=== PATIENT | female | born 1990 | race Two or more races ===

== ENCOUNTER 2023-01-28 20:27 | Emergency (ER) | payer OTHER ==
[2023-01-28] MEDS ORDERED: ACETAMINOPHEN 325 MG TABLET PO STA (20:45)
[2023-01-28] MEDS ORDERED: KETOROLAC 15 MG/ML VIAL IVP STA (20:45)
[2023-01-28] MEDS ORDERED: SODIUM CHLORIDE 0.9% 2,500 ML IV STA (20:45)
--- NOTE | 2023-01-28 20:49 | ED Physician Documentation ---
History of Present Illness - Stated complaint Stated Complaint: NUMB - History obtained from History obtained from: Patient - Additonal information Additional information: 32yF, previously healthy, p/w sore throat, clear rhinorrhea, and body aches/lower back pain X 1 day. denies sick contacts. denies nausea, abd pain, soa, cp, diarrhea, urinary sx. PD PAST MEDICAL HISTORY - Allergies Allergies/Adverse Reactions: Allergies Allergy/AdvReac Type Severity Reaction Status Date / Time No Known Drug Allergies Allergy Verified 01/28/23 20:59 PD ED PE NORMAL - Vitals Vital signs reviewed: Yes - General General: Alert and oriented X 3, No acute distress, Well developed/nourished - HEENT HEENT: Atraumatic, PERRL, EOMI, Moist mucous membranes, Other (BL tonsillar enlargement) - Neck Neck: Supple, no meningeal sign - Cardiac Cardiac: RRR - Respiratory Respiratory: No respiratory distress, Clear bilaterally - Abdomen Abdomen: Non tender, Non distended, No organomegaly - Back Back: No CVA TTP, No spinal TTP - Derm Derm: Normal color, Warm and dry - Extremities Extremities: Other (BL UE is held in flexion. hands are able to be straightened on my exam) - Neuro Neuro: Alert and oriented X 3, film writer 2-12 intact, No motor deficit, No sensory deficit, Normal speech Eye Opening: Spontaneous Motor: Obeys Commands Verbal: Oriented GCS Score: 15 Results - Vitals Vitals: Vital Signs - 24 hr 01/28/23 01/28/23 01/28/23 20:52 21:47 22:35 Temperature 38.8 C H 37 C Heart Rate 88 88 85 Respiratory 17 18 20 Rate Blood Pressure 145/107 H 114/66 110/69 O2 Saturation 100 100 100 If not protocol 2 : Oxygen Flow, liters/minute Oxygen O2 Source Room air - Labs Labs: Laboratory Tests 01/28/23 01/28/23 01/28/23 20:40 20:40 20:40 WBC 7.4 RBC 4.65 Hgb 12.8 Hct 38.6 MCV 83.0 MCH 27.5 MCHC 33.2 RDW 12.8 Plt Count 280 MPV 10.8 Neut # (Auto) 5.1 Lymph # (Auto) 0.9 L [place] # (Auto) 1.3 H Eos # (Auto) 0.0 Baso # (Auto) 0.1 Absolute Nucleated RBC 0.00 Nucleated RBC % 0.0 Sodium 132 L Potassium 3.5 Chloride 99 L Carbon Dioxide 23 Anion Gap 10.0 BUN 6 Creatinine 0.7 Estimated GFR (MDRD) 98 Glucose 122 H Lactic Acid 2.6 H Calcium 9.5 Magnesium 1.3 L Total Bilirubin 0.5 AST 14 ALT 9 L Alkaline Phosphatase 58 Total Protein 7.7 Albumin 4.4 Globulin 3.3 Albumin/Globulin Ratio 1.3 Urine HCG, Qual Nasal Adenovirus (PCR) Nasal B. parapertussis DNA (PCR) Nasal Coronavir 229E PCR Nasal Coronavir HKU1 PCR Nasal Coronavir NL63 PCR Nasal Coronavir OC43 PCR Nasal Enterovir/Rhinovir PCR Nasal Influenza B PCR Nasal Influenza A PCR Nasal Parainfluen 1 PCR Nasal Parainfluen 2 PCR Nasal Parainfluen 3 PCR Nasal Parainfluen 4 PCR Nasal RSV (PCR) Nasal B.pertussis DNA PCR Nasal C.pneumoniae (PCR) [place] Human Metapneumo PCR Nasal M.pneumoniae (PCR) Nasal SARS-CoV-2 (PCR) 01/28/23 01/28/23 01/28/23 20:42 21:45 22:30 WBC RBC Hgb Hct MCV MCH MCHC RDW Plt Count MPV Neut # (Auto) Lymph # (Auto) [place] # (Auto) Eos # (Auto) Baso # (Auto) Absolute Nucleated RBC Nucleated RBC % Sodium Potassium Chloride Carbon Dioxide Anion Gap BUN Creatinine Estimated GFR (MDRD) Glucose Lactic Acid 0.8 Calcium Magnesium Total Bilirubin AST ALT Alkaline Phosphatase Total Protein Albumin Globulin Albumin/Globulin Ratio Urine HCG, Qual NEGATIVE Nasal Adenovirus (PCR) NOT DETECTED Nasal B. parapertussis DNA (PCR) NOT DETECTED Nasal Coronavir 229E PCR NOT DETECTED Nasal Coronavir HKU1 PCR NOT DETECTED Nasal Coronavir NL63 PCR NOT DETECTED Nasal Coronavir OC43 PCR NOT DETECTED Nasal Enterovir/Rhinovir PCR NOT DETECTED Nasal Influenza B PCR NOT DETECTED Nasal Influenza A PCR NOT DETECTED Nasal Parainfluen 1 PCR NOT DETECTED Nasal Parainfluen 2 PCR NOT DETECTED Nasal Parainfluen 3 PCR NOT DETECTED Nasal Parainfluen 4 PCR NOT DETECTED Nasal RSV (PCR) NOT DETECTED Nasal B.pertussis DNA PCR NOT DETECTED Nasal C.pneumoniae (PCR) NOT DETECTED [place] Human Metapneumo PCR NOT DETECTED Nasal M.pneumoniae (PCR) NOT DETECTED Nasal SARS-CoV-2 (PCR) DETECTED A PD Medical Decision Making - ED course ED course: 32yF p/w viral URI sx X 1 day. sepsis protocol initiated at triage given fever and apparent extremity contracture. On my exam, patient is able to straighten her hands with some discomfort and appears to have some oropharyngeal erythema and tonsillar enlargement. RVP sent. plan to f/u cbc, abdominal panel, lactate, magnesium, cxr, and provide patient with IVF, tylenol, and IV toradol for body aches. Patient feeling much better, body aches and hand numbness/flexion resolved. covid +. she also had elevated lactic acid, repeated after fluids was normal. magnesium 1.3, repleted. plan to go home to rest, f/u with pcp. return precautions given. Departure - Departure Disposition: 01 Home, Self Care Clinical Impression: URI (upper respiratory infection), COVID, Hypomagnesemia Condition: Stable Instructions: COVID-19 [facility] Comments: You are seen in the emergency department for COVID-19 infection. Please stay at home, wear a mask around other members of household, wash your hands, get lots of rest, hydrate, use a cool-mist humidifier by the bedside at nighttime. You also had slightly low magnesium which we provided to you as a supplement through your IV. Return to the emergency department if you have shortness of breath, any new or worsening symptoms or other concerns. Follow-up with your primary care provider. Forms: PCP List
[2023-01-28 20:54] LABS: BASOPHILS # (AUTO) 0.1 10^3/uL (0.0-0.1); BASOPHILS % (AUTO) 0.7 %; EOSINOPHILS % (AUTO) 0.1 %; HCT - HEMATOCRIT 38.6 % (37.0-47.0); HGB - HEMOGLOBIN 12.8 g/dL (12.0-16.0); LYMPHOCYTES # (AUTO) 0.9 10^3/uL (1.5-3.5); LYMPHOCYTES % (AUTO) 12.5 %; MEAN CORPUSCULAR HEMOGLOBIN 27.5 pg (27.0-31.0); MEAN CORPUSCULAR HGB CONC 33.2 g/dL (32.0-36.0); MEAN PLATELET VOLUME 10.8 fL (7.9-10.8); MONOCYTES # (AUTO) 1.3 10^3/uL (0.0-1.0); MONOCYTES % (AUTO) 17.2 %; NEUTROPHILS # (AUTO) 5.1 10^3/uL (1.5-6.6); NEUTROPHILS % (AUTO) 69.2 %; PLT - PLATELET COUNT 280 10^3/uL (130-450); RED BLOOD COUNT 4.65 10^6/uL (4.20-5.40); RED CELL DISTRIBUTION WIDTH 12.8 % (12.0-15.0); WHITE BLOOD COUNT 7.4 x10^3/uL (4.8-10.8)
[2023-01-28 21:02] LABS: ALBUMIN 4.4 g/dL (3.2-5.5); ALBUMIN/GLOBULIN RATIO 1.3 (1.0-2.2); BILIRUBIN,TOTAL 0.5 mg/dL (0.2-1.0); CALCIUM 9.5 mg/dL (8.5-10.3); CREATININE 0.7 mg/dL (0.6-1.3); LACTIC ACID, VENOUS 2.6 mmol/L (0.5-2.2); MAGNESIUM 1.3 mg/dL (1.7-2.3); POTASSIUM 3.5 mmol/L (3.5-4.5); TOTAL PROTEIN 7.7 g/dL (6.4-8.9)
[2023-01-28] MEDS ORDERED: ACETAMINOPHEN 1,000 MG/100 ML 1,000 MG/100 ML BAG IV ONE (21:09)
--- NOTE | 2023-01-28 21:34 | XRAY Report ---
PROCEDURE: Chest 1 View X-Ray INDICATIONS: sore throat, rhinorrhea, fever, body aches TECHNIQUE: One view of the chest was acquired. COMPARISON: None. FINDINGS: Surgical changes and devices: None. Lungs and pleura: No pleural effusions or pneumothorax. Lungs are clear. Mediastinum: Mediastinal contours appear normal. Heart size is normal. Bones and chest wall: No suspicious bony lesions. Overlying soft tissues appear unremarkable. IMPRESSION: No acute cardiopulmonary process. Reviewed by: Nel Levi MD on 01/28/2023 9:33 PM PDT Approved by: Nel Levi MD on 01/28/2023 9:33 PM PDT Station ID: [id number]
[2023-01-28 22:00] LABS: HCG UR QUAL NEGATIVE
[2023-01-28 22:04] LABS: B. PARAPERTUSSIS- RESP PCR PAN NOT DETECTED; B. PERTUSSIS- RESP PCR PANEL NOT DETECTED; C. PNEUMONIAE- RESP PCR PANEL NOT DETECTED; CORONAVIRUS 229E-RESP PCR NOT DETECTED; CORONAVIRUS HKU1-RESP PCR NOT DETECTED; CORONAVIRUS NL63-RESP PCR NOT DETECTED; CORONAVIRUS OC43-RESP PCR NOT DETECTED; HUMAN METAPNEUMOVIRUS NOT DETECTED; INFLUENZA A- RESP PCR PANEL NOT DETECTED; INFLUENZA B - RESP PCR PANEL NOT DETECTED; M. PNEUMONIAE- RESP PCR PANEL NOT DETECTED; PARAINFLUENZA VIRUS 1 NOT DETECTED; PARAINFLUENZA VIRUS 2 NOT DETECTED; PARAINFLUENZA VIRUS 3 NOT DETECTED; PARAINFLUENZA VIRUS 4 NOT DETECTED; RHINOVIRUS/ENTEROVIRUS NOT DETECTED; RSV- RESP PCR PANEL NOT DETECTED
[2023-01-28 22:05] LABS: SARS-CoV-2 -RESP PCR PANEL DETECTED
[2023-01-28] MEDS ORDERED: MAGNESIUM SULFATE 2 GRAM 2 GM/50 ML BAG IV ONE (22:20)
[2023-01-28 23:24] VITALS: BP 106/67; O2SAT 97
== END 2023-01-28 23:47 | disposition home or self-care (01) ==
LOC: ED 20:27
DX: U07.1 COVID-19 (principal); E83.42 Hypomagnesemia
CPT/HCPCS: 36415; 71045; 80053; 81025; 83605; 83735; 85025; 87040; 87633; 96365; 96367; 96375; 99283; 99284; A9270; J0131

== ENCOUNTER 2023-12-16 13:52 | Inpatient (IN) | payer OTHER ==
[2023-12-16 14:59] LABS: BASOPHILS % (AUTO) 0.4 %; EOSINOPHILS # (AUTO) 0.1 10^3/uL (0.0-0.7); EOSINOPHILS % (AUTO) 1.1 %; HCT - HEMATOCRIT 36.5 % (37.0-47.0); HGB - HEMOGLOBIN 11.4 g/dL (12.0-16.0); LYMPHOCYTES # (AUTO) 2.6 10^3/uL (1.5-3.5); LYMPHOCYTES % (AUTO) 26.2 %; MEAN CORPUSCULAR HEMOGLOBIN 23.4 pg (27.0-31.0); MEAN CORPUSCULAR HGB CONC 31.2 g/dL (32.0-36.0); MEAN CORPUSCULAR VOLUME 74.8 fL (81.0-99.0); MONOCYTES % (AUTO) 10.5 %; NEUTROPHILS # (AUTO) 6.1 10^3/uL (1.5-6.6); NEUTROPHILS % (AUTO) 61.7 %; PLT - PLATELET COUNT 389 10^3/uL (130-450); RED BLOOD COUNT 4.88 10^6/uL (4.20-5.40); RED CELL DISTRIBUTION WIDTH 17.1 % (12.0-15.0); WHITE BLOOD COUNT 9.9 x10^3/uL (4.8-10.8)
[2023-12-16 15:12] LABS: LIPASE 19 U/L (11-82); MAGNESIUM 1.9 mg/dL (1.7-2.3)
[2023-12-16 15:22] LABS: ALBUMIN 4.2 g/dL (3.2-5.5); ALBUMIN/GLOBULIN RATIO 1.3 (1.0-2.2); ALKALINE PHOSPHATASE 54 IU/L (42-121); ALT ALANINE AMINOTRANSFERASE 296 IU/L (10-60); AST ASPARTATE AMINOTRANSFERASE 1445 IU/L (10-42); BILIRUBIN,TOTAL 0.7 mg/dL (0.2-1.0); BUN - BLOOD UREA NITROGEN 8 mg/dL (6-20); CALCIUM 9.3 mg/dL (8.5-10.3); CARBON DIOXIDE - CO2 28 mmol/L (21-32); CHLORIDE 103 mmol/L (101-111); CREATININE 0.6 mg/dL (0.6-1.3); GFR - MDRD 116 (>89); GLUCOSE 90 mg/dL (74-104); POTASSIUM 3.9 mmol/L (3.5-4.5); SODIUM 135 mmol/L (135-145); TOTAL PROTEIN 7.5 g/dL (6.4-8.9)
--- NOTE | 2023-12-16 15:56 | ED Physician Documentation ---
PD HPI LOWER EXT INJURY - Stated complaint Stated Complaint: ,BILAT LEG SWELLING - Chief complaint Chief Complaint: Ext Problem - Treatment prior to arrival Treatment prior to arrival: 33 yo female with hx of iron deficiency anemia, and low vitamind D, does take daily iron and D3 supplements presents to ER from clinic for bilateral lower extremity pain, specifically to knees. Clinic was concerned about rhabdo due to recent strenuous workout and very dark concentrated urine. Pt states she had a strenuous workout either Wednesday or Wednesday and focused on legs, she is normally fit but was preparing for a physical readiness test with [employer] so she added more weight than usual. Started experiencing some soreness and mild swelling to bilateral knees the following days still with regular ROM, yesterday severe bilateral leg swelling and pts says she is unable to bend either knees at all. No ankle pain. No recent fevers or chills, no nausea vomiting. Noticed very dark colored urine this morning. 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 - Present Medications Home Medications: Ambulatory Orders Medication Instructions Recorded Confirmed Cholecalciferol (Vitamin D3) 1,250 mcg PO DAILY 12/16/23 12/16/23 [Vitamin D3] Ferrous Sulfate [Feosol] 325 mg PO DAILY 12/16/23 12/16/23 - Allergies Allergies/Adverse Reactions: Allergies Allergy/AdvReac Type Severity Reaction Status Date / Time No Known Drug Allergies Allergy Verified 12/16/23 14:03 - Social History Does the pt smoke?: No Smoking Status: Never smoker Does the pt drink ETOH?: Yes ETOH Use: Wine Does the pt have substance abuse?: No - Immunizations Immunizations are current?: Yes PD ED PE NORMAL - Vitals Vital signs reviewed: Yes - General General: Alert and oriented X 3, No acute distress, Well developed/nourished - Cardiac Cardiac: RRR - Respiratory Respiratory: No respiratory distress, Clear bilaterally - Abdomen Abdomen: Normal bowel sounds, Soft, Non tender - Derm Derm: Normal color, Warm and dry, No rash - Extremities Extremities: Other (BLE: significant swelling from mid thigh to just below knees, Unable to bend knees due to pain and swelling) Results - Vitals Vitals: Vital Signs - 24 hr 12/16/23 12/16/23 13:55 16:22 Temperature 36.8 C Heart Rate 67 62 Respiratory 16 14 Rate Blood Pressure 109/89 H 140/92 H O2 Saturation 100 100 Oxygen O2 Source Room air - Labs Labs: Laboratory Tests 12/16/23 12/16/23 12/16/23 14:55 14:55 15:32 WBC 9.9 RBC 4.88 Hgb 11.4 L Hct 36.5 L MCV 74.8 L MCH 23.4 L MCHC 31.2 L RDW 17.1 H Plt Count 389 MPV 10.0 Neut # (Auto) 6.1 Lymph # (Auto) 2.6 [place] # (Auto) 1.0 Eos # (Auto) 0.1 Baso # (Auto) 0.0 Absolute Nucleated RBC 0.00 Nucleated RBC % 0.0 Sodium 135 Potassium 3.9 Chloride 103 Carbon Dioxide 28 Anion Gap 4.0 L BUN 8 Creatinine 0.6 Estimated GFR (MDRD) 116 Glucose 90 Calcium 9.3 Magnesium 1.9 Total Bilirubin 0.7 AST 1445 H ALT 296 H Alkaline Phosphatase 54 Total Creatine Kinase > 24413 H* Total Protein 7.5 Albumin 4.2 Globulin 3.3 Albumin/Globulin Ratio 1.3 Lipase 19 Urine Color BROWN Urine Clarity HAZY Urine pH 6.0 Ur Specific [place] >=1.030 H Urine Protein >=300 H Urine Glucose (UA) NEGATIVE Urine Ketones NEGATIVE Urine Occult Blood LARGE H Urine Nitrite NEGATIVE Urine Bilirubin SMALL H Urine Urobilinogen 0.2 (NORMAL) Ur Leukocyte Esterase NEGATIVE Urine RBC 6-10 H Urine WBC 4-5 Ur Squamous Epith Cells MOD Squamous H Urine Bacteria Moderate H Urine Mucus Moderate Strands Ur Microscopic Review INDICATED Urine Culture Comments NOT INDICATED PD Medical Decision Making - ED course ED course: 33-year-old female presents emergency department for bilateral lower extremity pain and swelling. Labs are complete for further evaluation as there is a high concern for rhabdomyolysis and CK was found to be greater than 80,000. Urinalysis showed a large amount of occult blood as well as bilirubin and no urobilinogen. CBC shows some very mild anemia, hemoglobin 11.4 no electrolyte abnormalities and kidney function is actually found to be unremarkable. AST alex vated at 1445, ALT 296. I spoke with hospitalist about admitting patient here he agrees that patient needs to be admitted for rhabdomyolysis he just wanted to confirm that nephrology felt like this was safe given how high her CK was. I spoke with nephrology at [facility] who believes that patient is safe to stay at our critical access hospital for aggressive IV fluids with low threshold to transfer out if kidney function changes. Patient will be admitted for aggressive IV fluids and routine lab monitoring. Pain was controlled with IV Dilaudid patient is ambulating but is having a hard time bending her knees she is making urine she has poor voided about 3-4 times that she has been here. Patient is agreeable to stay and Dr. Oneal has graciously agreed to accept the patient. Departure - Departure Disposition: 67 [facility] DC/[place] Clinical Impression: Rhabdomyolysis Discharge Date/Time: 12/16/23 17:39
[2023-12-16 16:01] LABS: BILIRUBIN,URINE SMALL (NEGATIVE); GLUCOSE, URINE (UA) NEGATIVE (NEGATIVE); KETONES,URINE (UA) NEGATIVE (NEGATIVE); LEUKOCYTE ESTERASE, URINE NEGATIVE (NEGATIVE); NITRITE,URINE NEGATIVE (NEGATIVE); OCCULT BLOOD,URINE LARGE (NEGATIVE); PROTEIN,URINE >=300 mg/dL (NEGATIVE); UROBILINOGEN,URINE 0.2 (NORMAL) E.U./dL (NORMAL)
[2023-12-16 16:06] LABS: CLARITY,URINE HAZY (CLEAR)
[2023-12-16 16:10] LABS: BACTERIA,URINE Moderate /HPF (None Seen); MUCUS,URINE Moderate Strands; SQUAMOUS EPITHELIAL CELL,UR MOD Squamous (<= Few)
[2023-12-16] MEDS: SODIUM CHLORIDE 0.9% 1,000 ML IV STA (16:10)
[2023-12-16 16:33] LABS: CK- CREATINE KINASE > 80000 IU/L (30-223)
[2023-12-16] MEDS ORDERED: ONDANSETRON ODT 4 MG TABLET TL PRN (16:43)
[2023-12-16] MEDS: HYDROmorphone 0.5 MG/0.5 ML SYRINGE IVP STA (16:50)
--- NOTE | 2023-12-16 17:55 | HISTORY & PHYSICAL EXAMINATION ---
Chief Complaint - Chief Complaint Chief Complaint: Bilateral leg pain History of Present Illness - History of Present Illness HPI Comment/Other: Patient is a 33-year-old female the past medical history of iron deficiency anemia and vitamin D deficiency who presented to the ED from an outpatient clinic due to bilateral lower extremity pain and concentrated urine with concern for rhabdomyolysis. Patient stated that she had a very strenuous workout earlier in the week focused on her legs in preparation for a physical readiness test with the [employer] and began experiencing soreness as well as mild bilateral knee pain in the following days. Her range of motion was not restricted at this time. She had some dark-colored urine this morning and sought additional medical care. Upon presentation to the ED a CK was obtained which was greater than 80,000. Her renal function was within normal limits and she did not have any electrolyte derangements. She was given 1 L of normal saline and did produce urine. Patient stated that her urine was clearing up slightly after her IV fluids. Case was discussed with nephrology at an outside hospital who stated that given her normal renal function and urine production she could be managed at [facility]. 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 : reports: None HEENT: reports: None Psych: reports: None Musculoskeletal: reports: None Derm: reports: None MRSA Hx?: No - Past Surgical History /PAINT DIPPER: reports: Dilation and currettage Meds/Allgy - Home Medications Home Medications: Ambulatory Orders Medication Instructions Recorded Confirmed Cholecalciferol (Vitamin D3) 1,250 mcg PO DAILY 12/16/23 12/16/23 [Vitamin D3] Ferrous Sulfate [Feosol] 325 mg PO DAILY 12/16/23 12/16/23 - Allergies Allergies/Adverse Reactions: Allergies Allergy/AdvReac Type Severity Reaction Status Date / Time No Known Drug Allergies Allergy Verified 12/16/23 14:03 Review of Systems - Constitutional Constitutional: denies: Fatigue, Fever, Chills, Malaise - Cardiovascular Cariovascular: denies: Irregular heart rate, Palpitations, Chest pain - Respiratory Respiratory: denies: Cough, Sputum production - Gastrointestinal Gastrointestinal: denies: Abdominal pain, Abdominal distention - Musculoskeletal Musculoskeletal: reports: Muscle pain, Muscle aches, Stiffness, Limited range of motion, Muscle weakness - All Other Systems All Other Systems: reports: Reviewed and negative Exam - Vital Signs Vital Signs: Vital Signs x48h Temp Pulse Resp BP Pulse Ox 12/16/23 16:22 62 14 140/92 H 100 12/16/23 13:55 36.8 C 67 16 109/89 H 100 - Physical Exam General Appearance: positive: Alert, Mild distress Respiratory: positive: Chest non-tender, No respiratory distress, Breath sounds nml Cardiovascular: positive: Regular rate & rhythm, No murmur, No gallop Abdomen: positive: Non-tender, No organomegaly, Nml bowel sounds, No distention Skin: positive: Color nml, No rash, Warm, Dry Extremities: positive: Nml appearance, No pedal edema. negative: Full ROM, Calf tenderness, Joint swelling, Lauren's sign/cords Conclusion/Plan - Problem List (1) Rhabdomyolysis Conclusion/Plan: -- Rhabdomyolysis with a CK greater than 80,000. Continue to trend until clearance. -- Will start patient on aggressive IV fluid resuscitation. Will give her a 2 L fluid bolus and start her on 200 mL an hour of IV fluids. Can administer IV Lasix if she becomes fluid overloaded. --Obtain BMP, ionized calcium, uric acid, phosphorus every 6 hours. --Careful monitoring of urine output. --Cardiac monitoring on telemetry. --She will be managed in the intensive care unit. --Will consider transfer pending electrolyte derangements or renal dysfunction. Qualifiers: Rhabdomyolysis type: non-traumatic Qualified Code(s): M62.82 - Rhabdomyolysis - Lab Results Fish Bones: 12/16/23 14:55 12/16/23 14:55
[2023-12-16 18:04] LABS: CALCIUM, IONIZED 1.13 mmol/L (1.15-1.33); VBG PH 7.358 (7.31-7.41)
[2023-12-16 18:08] LABS: INR 1.2 (0.8-1.2); PT - PROTHROMBIN TIME 13.4 secs (9.9-12.6)
[2023-12-16] MEDS: SODIUM CHLORIDE 0.9% 2,218.08 ML IV STA (18:09)
[2023-12-16] MEDS: SODIUM CHLORIDE FLUSH 0.9% 10 ML SYRINGE IVP SCH (18:15)
[2023-12-16 18:19] LABS: PHOSPHORUS 4.1 mg/dL (2.5-5.0); URIC ACID 5.3 mg/dL (2.3-6.6)
[2023-12-16 18:27] LABS: BUN - BLOOD UREA NITROGEN 8 mg/dL (6-20); CALCIUM 8.5 mg/dL (8.5-10.3); CARBON DIOXIDE - CO2 28 mmol/L (21-32); CHLORIDE 105 mmol/L (101-111); CREATININE 0.6 mg/dL (0.6-1.3); GFR - MDRD 116 (>89); GLUCOSE 90 mg/dL (74-104); POTASSIUM 3.8 mmol/L (3.5-4.5); SODIUM 135 mmol/L (135-145)
[2023-12-16 18:39] LABS: CK- CREATINE KINASE > 80000 IU/L (30-223)
[2023-12-16] MEDS: SODIUM CHLORIDE 0.9% 1,000 ML IV SCH (20:16)
[2023-12-16] MEDS: oxyCODONE 5 MG TABLET PO PRN (22:14)
[2023-12-16] MEDS: FAMOTIDINE 20 MG/2 ML VIAL IVP SCH (22:14)
[2023-12-16] MEDS: HEPARIN 5,000 UNIT/ML VIAL SUBQ SCH (22:16)
[2023-12-17 00:27] LABS: CALCIUM, IONIZED 1.11 mmol/L (1.15-1.33); VBG PH 7.316 (7.31-7.41)
[2023-12-17 00:42] LABS: PHOSPHORUS 4.1 mg/dL (2.5-5.0); URIC ACID 4.5 mg/dL (2.3-6.6)
[2023-12-17 01:13] LABS: BUN - BLOOD UREA NITROGEN 6 mg/dL (6-20); CALCIUM 8.3 mg/dL (8.5-10.3); CARBON DIOXIDE - CO2 25 mmol/L (21-32); CHLORIDE 110 mmol/L (101-111); CK- CREATINE KINASE > 80000 IU/L (30-223); CREATININE 0.5 mg/dL (0.6-1.3); GFR - MDRD 143 (>89); GLUCOSE 93 mg/dL (74-104); POTASSIUM 3.9 mmol/L (3.5-4.5); SODIUM 137 mmol/L (135-145)
[2023-12-17] MEDS: SODIUM CHLORIDE FLUSH 0.9% 10 ML SYRINGE IVP PRN (04:52)
[2023-12-17] MEDS: HYDROmorphone 0.5 MG/0.5 ML SYRINGE IVP PRN (04:52)
[2023-12-17 05:03] LABS: PHOSPHORUS 3.6 mg/dL (2.5-5.0); URIC ACID 4.3 mg/dL (2.3-6.6)
[2023-12-17 05:19] LABS: ALBUMIN 3.2 g/dL (3.2-5.5); ALBUMIN/GLOBULIN RATIO 1.3 (1.0-2.2); ALKALINE PHOSPHATASE 42 IU/L (42-121); ALT ALANINE AMINOTRANSFERASE 243 IU/L (10-60); AST ASPARTATE AMINOTRANSFERASE 1021 IU/L (10-42); BILIRUBIN,TOTAL 0.4 mg/dL (0.2-1.0); BUN - BLOOD UREA NITROGEN 6 mg/dL (6-20); CALCIUM 8.1 mg/dL (8.5-10.3); CARBON DIOXIDE - CO2 24 mmol/L (21-32); CHLORIDE 110 mmol/L (101-111); CREATININE 0.5 mg/dL (0.6-1.3); GFR - MDRD 143 (>89); GLUCOSE 100 mg/dL (74-104); IONIZED CALCIUM IF INDICATED YES; SODIUM 137 mmol/L (135-145); TOTAL PROTEIN 5.6 g/dL (6.4-8.9)
[2023-12-17 05:31] LABS: CALCIUM, IONIZED 1.09 mmol/L (1.15-1.33); VBG PH 7.39 (7.31-7.41)
[2023-12-17 05:57] LABS: CK- CREATINE KINASE > 80000 IU/L (30-223)
[2023-12-17] MEDS: CALCIUM CARBONATE CHEW 500 MG TABLET PO SCH (06:23)
--- NOTE | 2023-12-17 07:11 | PHARMACY PROGRESS NOTE ---
- Best Possible Medication History Admit Date and Time: 12/16/23 4519 Processed by: Nursing Medications reviewed in ED?: Yes Medication History completed: Yes Secondary Source(s): Insurance records As the person ultimately responsible for medication therapy, providers are able to order a medication from an existing home medication list in [facility] via the "Reconcile Routine" prior to Confirmation of that medication by telecommunications support. Such practice is discouraged except when the physician, in their clinical judgment, deems that a medical need exists for a medication without regard to previous use.
--- NOTE | 2023-12-17 08:53 | PROVIDER PROGRESS NOTE ---
Assessment/Plan - Problem List (1) Rhabdomyolysis Qualifiers: Rhabdomyolysis type: non-traumatic Qualified Code(s): M62.82 - Rhabdomyolysis Assessment/Plan: * CK still >80,000 this morning, will continue to trend until clearance. * Continue aggressive IV fluids, discussed starting IV lasix to prevent fluid overload * Continue monitoring urine output, subjective improvement per patient * Ca decreased from 1.13 to 1.09, potassium and phosphorus wnl. LFTs elevated but improving. Creatinine 0.5 - Current Meds Current Meds: Current Medications Generic Name Dose Route Start Last Admin Trade Name Freq PRN Reason Stop Dose Admin Calcium Carbonate/Glycine 1,250 mg 12/17/23 06:00 12/17/23 06:23 Calcium Carbonate Chew 500 Mg Tablet PO 12/17/23 10:01 1,250 mg Q4H SIMA Administration Protocol Famotidine 20 mg 12/16/23 21:00 12/16/23 22:14 Famotidine 20 Mg/2 Ml Vial IVP 20 mg BID SIMA Administration Heparin Sodium (Porcine) 5,000 unit 12/16/23 21:00 12/16/23 22:16 Heparin 5,000 Unit/Ml Vial SUBQ 5,000 unit BID SIMA Administration Hydromorphone HCl 0.5 mg 12/16/23 16:43 12/17/23 04:52 Hydromorphone 0.5 Mg/0.5 Ml Syringe IVP 0.5 mg Q2H PRN Administration Pain 8 to 10 Sodium Chloride 1,000 mls @ 200 mls/hr 12/16/23 19:00 12/17/23 06:23 Normal Saline 0.9% IV 12/17/23 18:59 200 mls/hr .Q5H SIMA Administration Oxycodone HCl 5 mg 12/16/23 16:43 12/16/23 22:14 Oxycodone 5 Mg Tablet PO 5 mg Q4HR PRN Administration Pain 5 to 7 Sodium Chloride 10 ml 12/16/23 17:00 12/17/23 01:26 Sodium Chloride Flush 0.9% 10 Ml Syringe IVP 10 ml 0100,0900,1700 SIMA Administration Sodium Chloride 10 ml 12/16/23 16:43 12/17/23 04:52 Sodium Chloride Flush 0.9% 10 Ml Syringe IVP 10 ml PRN PRN Administration NEEDED PER PROVIDER ORDERS - Lab Result Fish Bone Diagrams: 12/16/23 14:55 12/17/23 04:43 - EKG Results EKG Interpreted Independently: Yes EKG Comparison: No prior EKG - Additional Planning Condition/Complexity: Stable Plan Discussed with:: Patient Subjective - Subjective Patient Reports: Feeling Better (Pain adequately managed, urinating large amounts with color slightly improved) Objective Vital Signs: Vital Signs - 24 hr 12/16/23 12/16/23 12/16/23 13:55 16:22 20:00 Temperature 36.8 C 36.7 C Heart Rate 67 62 Heart Rate [ 68 Brachial] Heart Rate [ Monitoring electrodes] Respiratory 16 14 10 L Rate Blood Pressure 109/89 H 140/92 H Blood Pressure 120/84 H [Left Brachial artery] O2 Saturation 100 100 99 12/16/23 12/16/23 12/16/23 21:00 22:00 23:00 Temperature Heart Rate Heart Rate [ 67 63 54 L Brachial] Heart Rate [ Monitoring electrodes] Respiratory 11 L 11 L 10 L Rate Blood Pressure Blood Pressure 111/74 111/64 104/67 [Left Brachial artery] O2 Saturation 98 97 96 12/17/23 12/17/23 12/17/23 00:00 01:00 02:00 Temperature Heart Rate Heart Rate [ 69 59 L 64 Brachial] Heart Rate [ Monitoring electrodes] Respiratory 14 10 L 9 L Rate Blood Pressure Blood Pressure 101/62 119/81 H 111/69 [Left Brachial artery] O2 Saturation 96 98 97 12/17/23 12/17/23 12/17/23 03:00 04:00 05:00 Temperature Heart Rate Heart Rate [ 62 65 65 Brachial] Heart Rate [ Monitoring electrodes] Respiratory 12 10 L 12 Rate Blood Pressure Blood Pressure 115/69 108/70 116/71 [Left Brachial artery] O2 Saturation 97 98 96 12/17/23 12/17/23 12/17/23 06:00 07:00 08:00 Temperature 36.8 C 36.7 C 98.7 C H Heart Rate Heart Rate [ 63 Brachial] Heart Rate [ 62 76 Monitoring electrodes] Respiratory 9 L 10 L 12 Rate Blood Pressure Blood Pressure 107/81 H 102/70 117/91 H [Left Brachial artery] O2 Saturation 95 96 96 Oxygen O2 Source Room air I&O (Last 24 Hrs): Intake and Output Totals x24h 07/03/3012/16/23 12/17/23 23:59 23:59 23:59 Intake Total 0 1989 Output Total 800 1300 Balance 740 690 General: Alert, Oriented x3 Neuro: Alert - Results Results: Laboratory Results WBC 9.9 x10^3/uL (4.8-10.8) 12/16/23 14:55 RBC 4.88 10^6/uL (4.20-5.40) 12/16/23 14:55 Hgb 11.4 g/dL (12.0-16.0) L 12/16/23 14:55 Hct 36.5 % (37.0-47.0) L 12/16/23 14:55 MCV 74.8 fL (81.0-99.0) L 12/16/23 14:55 MCH 23.4 pg (27.0-31.0) L 12/16/23 14:55 MCHC 31.2 g/dL (32.0-36.0) L 12/16/23 14:55 RDW 17.1 % (12.0-15.0) H 12/16/23 14:55 Plt Count 389 10^3/uL (130-450) 12/16/23 14:55 MPV 10.0 fL (7.9-10.8) 12/16/23 14:55 Neut # (Auto) 6.1 10^3/uL (1.5-6.6) 12/16/23 14:55 Lymph # (Auto) 2.6 10^3/uL (1.5-3.5) 12/16/23 14:55 [place] # (Auto) 1.0 10^3/uL (0.0-1.0) 12/16/23 14:55 Eos # (Auto) 0.1 10^3/uL (0.0-0.7) 12/16/23 14:55 Baso # (Auto) 0.0 10^3/uL (0.0-0.1) 12/16/23 14:55 Absolute Nucleated RBC 0.00 x10^3/uL 12/16/23 14:55 Nucleated RBC % 0.0 /100WBC 12/16/23 14:55 PT 13.4 secs (9.9-12.6) H 12/16/23 17:55 INR 1.2 (0.8-1.2) 12/16/23 17:55 VBG pH 7.390 (7.31-7.41) 12/17/23 04:43 Ionized Calcium 1.09 mmol/L (1.15-1.33) L 12/17/23 04:43 Sodium 137 mmol/L (135-145) 12/17/23 04:43 Potassium 4.0 mmol/L (3.5-4.5) 12/17/23 04:43 Chloride 110 mmol/L (101-111) 12/17/23 04:43 Carbon Dioxide 24 mmol/L (21-32) 12/17/23 04:43 Anion Gap 3.0 (6-13) L 12/17/23 04:43 BUN 6 mg/dL (6-20) 12/17/23 04:43 Creatinine 0.5 mg/dL (0.6-1.3) L 12/17/23 04:43 Estimated GFR (MDRD) 143 (>89) 12/17/23 04:43 Glucose 100 mg/dL (74-104) 12/17/23 04:43 Uric Acid 4.3 mg/dL (2.3-6.6) 12/17/23 04:43 Calcium 8.1 mg/dL (8.5-10.3) L 12/17/23 04:43 Ionized Calcium YES 12/17/23 04:43 Phosphorus 3.6 mg/dL (2.5-5.0) 12/17/23 04:43 Magnesium 1.9 mg/dL (1.7-2.3) 12/16/23 14:55 Total Bilirubin 0.4 mg/dL (0.2-1.0) 12/17/23 04:43 AST 1021 IU/L (10-42) H 12/17/23 04:43 ALT 243 IU/L (10-60) H 12/17/23 04:43 Alkaline Phosphatase 42 IU/L (42-121) 12/17/23 04:43 Total Creatine Kinase > 14432 IU/L (30-223) H* 12/17/23 04:43 Total Protein 5.6 g/dL (6.4-8.9) L 12/17/23 04:43 Albumin 3.2 g/dL (3.2-5.5) 12/17/23 04:43 Globulin 2.4 g/dL (2.1-4.2) 12/17/23 04:43 Albumin/Globulin Ratio 1.3 (1.0-2.2) 12/17/23 04:43 Lipase 19 U/L (11-82) 12/16/23 14:55 Urine Color BROWN 12/16/23 15:32 Urine Clarity HAZY (CLEAR) 12/16/23 15:32 Urine pH 6.0 PH (5.0-7.5) 12/16/23 15:32 Ur Specific [place] >=1.030 (1.002-1.030) H 12/16/23 15:32 Urine Protein >=300 mg/dL (NEGATIVE) H 12/16/23 15:32 Urine Glucose (UA) NEGATIVE mg/dL (NEGATIVE) 12/16/23 15:32 Urine Ketones NEGATIVE mg/dL (NEGATIVE) 12/16/23 15:32 Urine Occult Blood LARGE (NEGATIVE) H 12/16/23 15:32 Urine Nitrite NEGATIVE (NEGATIVE) 12/16/23 15:32 Urine Bilirubin SMALL (NEGATIVE) H 12/16/23 15:32 Urine Urobilinogen 0.2 (NORMAL) E.U./dL (NORMAL) 12/16/23 15:32 Ur Leukocyte Esterase NEGATIVE (NEGATIVE) 12/16/23 15:32 Urine RBC 6-10 /HPF (0-5) H 12/16/23 15:32 Urine WBC 4-5 /HPF (0-5) 12/16/23 15:32 Ur Squamous Epith Cells MOD Squamous (<= Few) H 12/16/23 15:32 Urine Bacteria Moderate /HPF (None Seen) H 12/16/23 15:32 Urine Mucus Moderate Strands 12/16/23 15:32 Ur Microscopic Review INDICATED 12/16/23 15:32 Urine Culture Comments NOT INDICATED 12/16/23 15:32 Nasal Screen MRSA (PCR) NEGATIVE (NEGATIVE) 12/16/23 17:50
[2023-12-17] MEDS: FUROSEMIDE 40 MG/4 ML VIAL IVP ONE (09:14)
[2023-12-17] MEDS: ONDANSETRON 4 MG/2 ML VIAL IVP PRN (11:59)
[2023-12-17] MEDS: SODIUM CHLORIDE 0.9% 1,000 ML IV SCH (23:22)
[2023-12-18 06:16] LABS: HCT - HEMATOCRIT 29.7 % (37.0-47.0); HGB - HEMOGLOBIN 9.1 g/dL (12.0-16.0); MEAN CORPUSCULAR HEMOGLOBIN 23.3 pg (27.0-31.0); MEAN CORPUSCULAR HGB CONC 30.6 g/dL (32.0-36.0); MEAN CORPUSCULAR VOLUME 76.2 fL (81.0-99.0); MEAN PLATELET VOLUME 10.3 fL (7.9-10.8); RED BLOOD COUNT 3.9 10^6/uL (4.20-5.40); RED CELL DISTRIBUTION WIDTH 17.2 % (12.0-15.0); WHITE BLOOD COUNT 7.7 x10^3/uL (4.8-10.8)
[2023-12-18 06:30] LABS: CALCIUM, IONIZED 1.15 mmol/L (1.15-1.33); VBG PH 7.357 (7.31-7.41)
[2023-12-18 06:32] LABS: ALBUMIN 3.2 g/dL (3.2-5.5); ALBUMIN/GLOBULIN RATIO 1.3 (1.0-2.2); ALKALINE PHOSPHATASE 38 IU/L (42-121); ALT ALANINE AMINOTRANSFERASE 268 IU/L (10-60); AST ASPARTATE AMINOTRANSFERASE 953 IU/L (10-42); BILIRUBIN,TOTAL 0.5 mg/dL (0.2-1.0); BUN - BLOOD UREA NITROGEN 3 mg/dL (6-20); CALCIUM 8.3 mg/dL (8.5-10.3); CARBON DIOXIDE - CO2 28 mmol/L (21-32); CHLORIDE 107 mmol/L (101-111); CREATININE 0.5 mg/dL (0.6-1.3); GFR - MDRD 143 (>89); GLUCOSE 93 mg/dL (74-104); IONIZED CALCIUM IF INDICATED YES; MAGNESIUM 1.6 mg/dL (1.7-2.3); PHOSPHORUS 3.2 mg/dL (2.5-5.0); POTASSIUM 3.6 mmol/L (3.5-4.5); SODIUM 138 mmol/L (135-145); TOTAL PROTEIN 5.6 g/dL (6.4-8.9); URIC ACID 3.6 mg/dL (2.3-6.6)
[2023-12-18] MEDS: POTASSIUM CHLORIDE 20 MEQ TABLET PO ONE (08:25)
[2023-12-18] MEDS: MAGNESIUM OXIDE 400 MG TABLET PO ONE (08:25)
[2023-12-18 08:30] LABS: CK- CREATINE KINASE > 80000 IU/L (30-223)
--- NOTE | 2023-12-18 11:13 | PROVIDER PROGRESS NOTE ---
Assessment/Plan - Problem List (1) Rhabdomyolysis Qualifiers: Rhabdomyolysis type: non-traumatic Qualified Code(s): M62.82 - Rhabdomyolysis Assessment/Plan: (1) Rhabdomyolysis Conclusion/Plan: --CK remains above 80,000 --Will continue her on aggressive IV fluids hydration. --Pain is improving. --May need transfer to [facility] if her CK does not decline. - Current Meds Current Meds: Current Medications Generic Name Dose Route Start Last Admin Trade Name Freq PRN Reason Stop Dose Admin Famotidine 20 mg 12/16/23 21:00 12/18/23 08:25 Famotidine 20 Mg/2 Ml Vial IVP 20 mg BID SIMA Administration Heparin Sodium (Porcine) 5,000 unit 12/16/23 21:00 12/18/23 08:25 Heparin 5,000 Unit/Ml Vial SUBQ 5,000 unit BID SIMA Administration Hydromorphone HCl 0.5 mg 12/16/23 16:43 12/18/23 06:04 Hydromorphone 0.5 Mg/0.5 Ml Syringe IVP 0.5 mg Q2H PRN Administration Pain 8 to 10 Sodium Chloride 1,000 mls @ 150 mls/hr 12/17/23 23:00 12/18/23 06:04 Normal Saline 0.9% IV 12/18/23 16:59 150 mls/hr .Q6H40M SIMA Administration Ondansetron HCl 4 mg 12/16/23 16:43 12/17/23 19:10 Ondansetron 4 Mg/2 Ml Vial IVP 4 mg Q6HR PRN Administration Nausea / Vomiting Oxycodone HCl 5 mg 12/16/23 16:43 12/17/23 17:39 Oxycodone 5 Mg Tablet PO 5 mg Q4HR PRN Administration Pain 5 to 7 Sodium Chloride 10 ml 12/16/23 17:00 12/18/23 08:26 Sodium Chloride Flush 0.9% 10 Ml Syringe IVP 10 ml 0100,0900,1700 SIMA Administration Sodium Chloride 10 ml 12/16/23 16:43 12/17/23 04:52 Sodium Chloride Flush 0.9% 10 Ml Syringe IVP 10 ml PRN PRN Administration NEEDED PER PROVIDER ORDERS - Lab Result Fish Bone Diagrams: 12/18/23 05:55 12/18/23 05:55 - Additional Planning My Orders: My Active Orders 12/17/23 23:00 Sodium Chloride 0.9% [Normal Saline 0.9%] 1,000 ml IV 150 mls/hr 12/18/23 10:43 Admit [Admit \ Transfer \ Status] [RC] .ONCE 12/19/23 05:00 CALCIUM, IONIZED ([facility]) [BG] DAILYLAB CBC W/O DIFF (HEMOGRAM) [HEME] DAILYLAB CK- CREATINE KINASE [CHEM] DAILYLAB CMP, RFLX TO IONIZED CA IF [CHEM] DAILYLAB MAGNESIUM [CHEM] DAILYLAB PHOSPHORUS [CHEM] DAILYLAB 12/20/23 05:00 CBC W/O DIFF (HEMOGRAM) [HEME] DAILYLAB CK- CREATINE KINASE [CHEM] DAILYLAB CMP, RFLX TO IONIZED CA IF [CHEM] DAILYLAB 12/21/23 05:00 CBC W/O DIFF (HEMOGRAM) [HEME] DAILYLAB CK- CREATINE KINASE [CHEM] DAILYLAB CMP, RFLX TO IONIZED CA IF [CHEM] DAILYLAB 12/22/23 05:00 CBC W/O DIFF (HEMOGRAM) [HEME] DAILYLAB CK- CREATINE KINASE [CHEM] DAILYLAB CMP, RFLX TO IONIZED CA IF [CHEM] DAILYLAB 12/23/23 05:00 CBC W/O DIFF (HEMOGRAM) [HEME] DAILYLAB CMP, RFLX TO IONIZED CA IF [CHEM] DAILYLAB 12/24/23 05:00 CBC W/O DIFF (HEMOGRAM) [HEME] DAILYLAB Subjective - Subjective Patient Reports: Feeling Better Objective Vital Signs: Vital Signs - 24 hr 12/17/23 12/17/23 12/17/23 11:00 12:00 13:00 Temperature 36.8 C Heart Rate [ 66 83 64 Monitoring electrodes] Respiratory 13 10 L 10 L Rate Blood Pressure 125/85 H 122/84 H 106/68 [Left Brachial artery] O2 Saturation 97 99 97 12/17/23 12/17/23 12/17/23 14:00 15:00 16:00 Temperature 36.9 C Heart Rate [ 59 L 54 L 62 Monitoring electrodes] Respiratory 10 L 10 L 10 L Rate Blood Pressure 109/80 104/69 100/60 [Left Brachial artery] O2 Saturation 97 97 98 12/17/23 12/17/23 12/17/23 17:00 18:00 19:00 Temperature Heart Rate [ 70 72 68 Monitoring electrodes] Respiratory 15 16 12 Rate Blood Pressure 111/81 H 129/83 H 110/70 [Left Brachial artery] O2 Saturation 99 98 99 12/17/23 12/17/23 12/17/23 20:00 21:00 22:00 Temperature 37.1 C Heart Rate [ 76 67 67 Monitoring electrodes] Respiratory 14 11 L 11 L Rate Blood Pressure 116/79 119/75 113/72 [Left Brachial artery] O2 Saturation 100 99 98 12/17/23 12/18/23 12/18/23 23:00 00:00 01:00 Temperature 37 C Heart Rate [ 58 L 57 L 55 L Monitoring electrodes] Respiratory 8 L 8 L 11 L Rate Blood Pressure 111/78 100/53 L 98/63 [Left Brachial artery] O2 Saturation 97 98 98 12/18/23 12/18/23 12/18/23 02:00 03:00 04:00 Temperature Heart Rate [ 60 63 57 L Monitoring electrodes] Respiratory 10 L 11 L 8 L Rate Blood Pressure 108/70 112/74 110/75 [Left Brachial artery] O2 Saturation 98 98 98 12/18/23 12/18/23 12/18/23 05:00 06:00 07:00 Temperature 37.1 C Heart Rate [ 59 L 58 L 56 L Monitoring electrodes] Respiratory 9 L 8 L 8 L Rate Blood Pressure 127/75 108/83 H 100/62 [Left Brachial artery] O2 Saturation 97 96 97 12/18/23 12/18/23 12/18/23 08:00 09:00 10:00 Temperature 36.8 C Heart Rate [ 55 L 73 66 Monitoring electrodes] Respiratory 9 L 12 10 L Rate Blood Pressure 105/67 114/59 L 112/71 [Left Brachial artery] O2 Saturation 98 99 94 Oxygen O2 Source Room air I&O (Last 24 Hrs): Intake and Output Totals x24h 12/16/23 12/17/23 12/18/23 23:59 23:59 23:59 Intake Total 1540 6123.333 1960 Output Total 800 6925 875 Balance 740 -941.443 1420 General: Alert, Oriented x3, Cooperative, No acute distress Neuro: Alert, CN 2-12 Grossly Intact, Oriented Times 3 Cardiovascular: Regular rate, Normal S1, Normal S2, No murmurs Respiratory: Chest non-tender, No respiratory distress, Breath sounds nml Abdomen: Normal bowel sounds, Soft, No tenderness, No hepatospenomegaly, No masses Extremities: No edema, No tenderness/swelling - Results Results: Laboratory Results WBC 7.7 x10^3/uL (4.8-10.8) 12/18/23 05:55 RBC 3.90 10^6/uL (4.20-5.40) L 12/18/23 05:55 Hgb 9.1 g/dL (12.0-16.0) L 12/18/23 05:55 Hct 29.7 % (37.0-47.0) L 12/18/23 05:55 MCV 76.2 fL (81.0-99.0) L 12/18/23 05:55 MCH 23.3 pg (27.0-31.0) L 12/18/23 05:55 MCHC 30.6 g/dL (32.0-36.0) L 12/18/23 05:55 RDW 17.2 % (12.0-15.0) H 12/18/23 05:55 Plt Count 305 10^3/uL (130-450) 12/18/23 05:55 MPV 10.3 fL (7.9-10.8) 12/18/23 05:55 Neut # (Auto) 6.1 10^3/uL (1.5-6.6) 12/16/23 14:55 Lymph # (Auto) 2.6 10^3/uL (1.5-3.5) 12/16/23 14:55 Griggs # (Auto) 1.0 10^3/uL (0.0-1.0) 12/16/23 14:55 Eos # (Auto) 0.1 10^3/uL (0.0-0.7) 12/16/23 14:55 Baso # (Auto) 0.0 10^3/uL (0.0-0.1) 12/16/23 14:55 Absolute Nucleated RBC 0.00 x10^3/uL 12/16/23 14:55 Nucleated RBC % 0.0 /100WBC 12/16/23 14:55 PT 13.4 secs (9.9-12.6) H 12/16/23 17:55 INR 1.2 (0.8-1.2) 12/16/23 17:55 VBG pH 7.357 (7.31-7.41) 12/18/23 05:55 Ionized Calcium 1.15 mmol/L (1.15-1.33) 12/18/23 05:55 Sodium 138 mmol/L (135-145) 12/18/23 05:55 Potassium 3.6 mmol/L (3.5-4.5) 12/18/23 05:55 Chloride 107 mmol/L (101-111) 12/18/23 05:55 Carbon Dioxide 28 mmol/L (21-32) 12/18/23 05:55 Anion Gap 3.0 (6-13) L 12/18/23 05:55 BUN 3 mg/dL (6-20) L 12/18/23 05:55 Creatinine 0.5 mg/dL (0.6-1.3) L 12/18/23 05:55 Estimated GFR (MDRD) 143 (>89) 12/18/23 05:55 Glucose 93 mg/dL (74-104) 12/18/23 05:55 Uric Acid 3.6 mg/dL (2.3-6.6) 12/18/23 05:55 Calcium 8.3 mg/dL (8.5-10.3) L 12/18/23 05:55 Ionized Calcium YES 12/18/23 05:55 Phosphorus 3.2 mg/dL (2.5-5.0) 12/18/23 05:55 Magnesium 1.6 mg/dL (1.7-2.3) L 12/18/23 05:55 Total Bilirubin 0.5 mg/dL (0.2-1.0) 12/18/23 05:55 AST 953 IU/L (10-42) H 12/18/23 05:55 ALT 268 IU/L (10-60) H 12/18/23 05:55 Alkaline Phosphatase 38 IU/L (42-121) L 12/18/23 05:55 Total Creatine Kinase > 76562 IU/L (30-223) H* 12/18/23 05:55 Total Protein 5.6 g/dL (6.4-8.9) L 12/18/23 05:55 Albumin 3.2 g/dL (3.2-5.5) 12/18/23 05:55 Globulin 2.4 g/dL (2.1-4.2) 12/18/23 05:55 Albumin/Globulin Ratio 1.3 (1.0-2.2) 12/18/23 05:55 Lipase 19 U/L (11-82) 12/16/23 14:55 Urine Color BROWN 12/16/23 15:32 Urine Clarity HAZY (CLEAR) 12/16/23 15:32 Urine pH 6.0 PH (5.0-7.5) 12/16/23 15:32 Ur Specific [place] >=1.030 (1.002-1.030) H 12/16/23 15:32 Urine Protein >=300 mg/dL (NEGATIVE) H 12/16/23 15:32 Urine Glucose (UA) NEGATIVE mg/dL (NEGATIVE) 12/16/23 15:32 Urine Ketones NEGATIVE mg/dL (NEGATIVE) 12/16/23 15:32 Urine Occult Blood LARGE (NEGATIVE) H 12/16/23 15:32 Urine Nitrite NEGATIVE (NEGATIVE) 12/16/23 15:32 Urine Bilirubin SMALL (NEGATIVE) H 12/16/23 15:32 Urine Urobilinogen 0.2 (NORMAL) E.U./dL (NORMAL) 12/16/23 15:32 Ur Leukocyte Esterase NEGATIVE (NEGATIVE) 12/16/23 15:32 Urine RBC 6-10 /HPF (0-5) H 12/16/23 15:32 Urine WBC 4-5 /HPF (0-5) 12/16/23 15:32 Ur Squamous Epith Cells MOD Squamous (<= Few) H 12/16/23 15:32 Urine Bacteria Moderate /HPF (None Seen) H 12/16/23 15:32 Urine Mucus Moderate Strands 12/16/23 15:32 Ur Microscopic Review INDICATED 12/16/23 15:32 Urine Culture Comments NOT INDICATED 12/16/23 15:32 Nasal Screen MRSA (PCR) NEGATIVE (NEGATIVE) 12/16/23 17:50
[2023-12-18] MEDS ORDERED: SODIUM CHLORIDE 0.9% 0 ML ONE (22:24)
[2023-12-18] MEDS: SODIUM CHLORIDE 0.9% 1,000 ML IV SCH (23:26)
[2023-12-19 05:35] LABS: HCT - HEMATOCRIT 30.1 % (37.0-47.0); HGB - HEMOGLOBIN 9.2 g/dL (12.0-16.0); MEAN CORPUSCULAR HEMOGLOBIN 23.4 pg (27.0-31.0); MEAN CORPUSCULAR HGB CONC 30.6 g/dL (32.0-36.0); MEAN CORPUSCULAR VOLUME 76.6 fL (81.0-99.0); MEAN PLATELET VOLUME 11.3 fL (7.9-10.8); RED BLOOD COUNT 3.93 10^6/uL (4.20-5.40); RED CELL DISTRIBUTION WIDTH 17.3 % (12.0-15.0); WHITE BLOOD COUNT 8.7 x10^3/uL (4.8-10.8)
[2023-12-19 05:54] LABS: ALBUMIN 3.3 g/dL (3.2-5.5); ALBUMIN/GLOBULIN RATIO 1.3 (1.0-2.2); ALKALINE PHOSPHATASE 41 IU/L (42-121); ALT ALANINE AMINOTRANSFERASE 300 IU/L (10-60); AST ASPARTATE AMINOTRANSFERASE 936 IU/L (10-42); BILIRUBIN,TOTAL 0.3 mg/dL (0.2-1.0); BUN - BLOOD UREA NITROGEN 8 mg/dL (6-20); CALCIUM 8.6 mg/dL (8.5-10.3); CARBON DIOXIDE - CO2 29 mmol/L (21-32); CHLORIDE 105 mmol/L (101-111); CREATININE 0.5 mg/dL (0.6-1.3); GFR - MDRD 143 (>89); GLUCOSE 92 mg/dL (74-104); IONIZED CALCIUM IF INDICATED NO; MAGNESIUM 1.5 mg/dL (1.7-2.3); PHOSPHORUS 3.6 mg/dL (2.5-5.0); POTASSIUM 3.6 mmol/L (3.5-4.5); SODIUM 137 mmol/L (135-145); TOTAL PROTEIN 5.9 g/dL (6.4-8.9)
[2023-12-19 06:18] LABS: CK- CREATINE KINASE > 80000 IU/L (30-223)
[2023-12-19 06:29] LABS: CALCIUM, IONIZED 1.12 mmol/L (1.15-1.33); VBG PH 7.347 (7.31-7.41)
--- NOTE | 2023-12-19 12:10 | DISCHARGE SUMMARY ---
Discharge Summary Admit Date: 12/16/23 Discharge Date: 12/19/23 Discharging Provider: Issac Weiss Primary Care Provider: [facility] Code Status: Attempt Resuscitation Condition at Discharge: Good Discharge Disposition: 02 Transfer Acute Care Hosp - [facility] History of Present Illness: Patient is a 33-year-old female the past medical history of iron deficiency anemia and vitamin D deficiency who presented to the ED from an outpatient clin ic due to bilateral lower extremity pain and concentrated urine with concern for rhabdomyolysis. Patient stated that she had a very strenuous workout earlier in the week focused on her legs in preparation for a physical readiness test with the [employer] and began experiencing soreness as well as mild bilateral knee pain in the following days. Her range of motion was not restricted at this time. She had some dark-colored urine this morning and sought additional medical care. Upon presentation to the ED a CK was obtained which was greater than 80,000. Her renal function was within normal limits and she did not have any electrolyte derangements. She was given 1 L of normal saline and did produce urine. Patient stated that her urine was clearing up slightly after her IV fluids. Case was discussed with nephrology at an outside hospital who stated that given her normal renal function and urine production she could be managed at [facility]. - HOSPITAL COURSE Hospital Course: Patient is a 33-year-old female who presented to the ED after some strenuous exercise on December 19. Patient began experiencing lower extremity pain and swelling of her knees through the week and eventually had an episode of dark urine the day of her admission. Upon presentation to the ED a CK was obtained which showed a CK greater than 80,000 with an elevation of her liver enzymes. Her renal function and electrolytes were all within normal limits. EKG showed normal sinus rhythm and she had no arrhythmias noted on her telemetry patient was admitted and started on aggressive IV fluid resuscitation. During her hospital course, her renal function and electrolytes remained stable and her symptoms improved mildly. She began experiencing a slightly increased range of motion in bilateral knee flexion however continued to have some pain. During her 3-1/2-day hospital course she received over 15 L of fluid and had excellent urine output however her CK continued to be elevated. We reached out to [facility] who accepted the patient for further workup and treatment. - ALLERGIES Allergies/Adverse Reactions: Allergies Allergy/AdvReac Type Severity Reaction Status Date / Time No Known Drug Allergies Allergy Verified 12/16/23 14:03 - MEDICATIONS Home Medications: Ambulatory Orders Medication Instructions Recorded Confirmed Cholecalciferol (Vitamin D3) 1,250 mcg PO DAILY 12/16/23 12/16/23 [Vitamin D3] Ferrous Sulfate [Feosol] 325 mg PO DAILY 12/16/23 12/16/23 - PHYSICAL EXAM AT DISCHARGE General Appearance: positive: No acute distress, Alert Respiratory: positive: Chest non-tender, No respiratory distress, Breath sounds nml Cardiovascular: positive: Regular rate & rhythm, No murmur, No gallop Extremities: positive: Nml appearance, Other (Knee flexion is limited by pain and tightness of the joint. Extremities are soft. ) - LABS Result Diagrams: 12/19/23 04:10 12/19/23 04:10 - TIME SPENT Time Spent in Discharge (Minutes): 35
[2023-12-19 13:03] VITALS: BP 119/73; O2SAT 100
== END 2023-12-19 14:15 | disposition short-term general hospital (02) | DRG 558 ==
LOC: ED 13:52 → ICU 16:46
PROVIDERS: ADMIT Family Medicine; ATTEND Family Medicine
DX: M62.82 Rhabdomyolysis (principal)
CPT/HCPCS: 36415; 80048; 80053; 81001; 82330; 82550; 83690; 83735; 84100; 84550; 85025; 85027; 85610; 87150; 93005; 96360; 99285; A9270; J1170; 81003; 87086

== ENCOUNTER 2024-02-26 13:13 | Outpatient (CLI) | payer OTHER | END 2024-02-26 13:14 | disposition home or self-care (01) | LOC: DI 13:13 | PROVIDERS: ATTEND Preventive Medicine Aerospace Medicine | DX: Z53.9 Procedure and treatment not carried out, unspecified reason (principal) ==